=== PATIENT | female | born 1950 | race Caucasian/White ===

== ENCOUNTER → 2016-12-15 | Outpatient (CLI) | payer OTHER ==
--- NOTE | 2016-12-15 16:13 | DIAGNOSTIC IMAGING REPORT ---
CHEST 2 VIEWS ROUTINE CLINICAL HISTORY: R05 Productive [id number] Low grade [id number] COMPARISON STUDY: No previous studies for comparison. FINDINGS: The bones soft tissues and hemidiaphragms are normal. The cardiomediastinal silhouette is normal. The lungs are clear. The pulmonary vasculature is normal. IMPRESSION: Negative chest. Electronically signed by: Niko Grullon M.D. 12/15/2016 4:12 PM Dictated Date/Time: 12/15/2016 4:10 PM
== END | disposition home or self-care (01) ==
LOC: C.RAD1850 15:56
PROVIDERS: ATTEND Internal Medicine
DX: R50.9 Fever, unspecified (principal); R05 Cough

== ENCOUNTER → 2017-04-21 | Outpatient (CLI) | payer OTHER ==
--- NOTE | 2017-04-22 14:18 | MAMMOGRAPHY REPORT ---
BILATERAL DIGITAL SCREENING MAMMOGRAM TOMOSYNTHESIS WITH CAD: 04/21/2017 CLINICAL HISTORY: Routine screening. Patient has no complaints. TECHNIQUE: Breast tomosynthesis in addition to standard 2D mammography was performed. Current study was also evaluated with a Computer Aided Detection (CAD) system. COMPARISON: Comparison is made to exams dated: 04/17/2016 mammogram, 04/12/2015 mammogram, 04/11/2014 mamm ogram, 04/07/2013 mammogram, 04/06/2012 mammogram, and 03/24/2011 mammogram - [facility] er. BREAST COMPOSITION: The tissue of both breasts is extremely dense, which lowers the sensitivity of m ammography. FINDINGS: A linear scar marker overlies the far superior and posterior right upper outer quadrant in the axillary tail region. There is a focal area of architectural distortion in the upper outer poste rior approximate 10:00 right breast, which is located 6 cm inferior to the scar marker based on the M LO view. It is unclear if this distortion could be secondary to prior surgery or represents a new ar ea of distortion and further evaluation with spot compression tomosynthesis views and possibly target ed ultrasound are recommended. There are diffuse bilateral benign-appearing calcifications. No other suspicious mass, area of archi tectural distortion or cluster of suspicious microcalcifications is seen. IMPRESSION: ACR BI-RADS CATEGORY 0: INCOMPLETE EVALUATION: NEED ADDITIONAL IMAGING EVALUATION The focal area of architectural distortion in the approximate 10:00 right breast needs additional wanda luation. The patient will be called to schedule an appointment. Approximately 10% of breast cancers are not detected with mammography. A negative mammographic report should not delay biopsy if a clinically suggestive mass is present. Colleen Voss M.D. ay/:04/21/2017 17:04:48 Nurse'S Aides Teacher: Belle HEBERT(Chriss)(Jeromy), [facility] letter sent: Addl Imaging 0 BI-RADS Code: ACR BI-RADS Category 0: Incomplete Evaluation: Need Additional Imaging Evaluation
== END | disposition home or self-care (01) ==
LOC: C.MAMM 10:10
PROVIDERS: ATTEND Surgery
DX: Z12.31 Encounter for screening mammogram for malignant neoplasm of breast (principal); R92.8 Other abnormal and inconclusive findings on diagnostic imaging of breast

== ENCOUNTER → 2017-05-05 | Outpatient (CLI) | payer OTHER ==
--- NOTE | 2017-05-06 15:30 | MAMMOGRAPHY REPORT ---
UNILATERAL RIGHT DIGITAL DIAGNOSTIC MAMMOGRAM TOMOSYNTHESIS AND TARGETED RIGHT ULTRASOUND: 05/05/2017 CLINICAL HISTORY: 66-year-old woman called back from screening mammography for architectural distorti on in the approximate 10:00 posterior right breast. Patient is a history of prior benign surgical ex cisional biopsy, with a skin surgical scar marker overlying the right axillary tail. Family history of breast cancer = sister at age 35, mother and maternal aunt. TECHNIQUE: Spot compression right CC and MLO tomosynthesis images were obtained. COMPARISON: Comparison is made to exams dated: 04/21/2017 mammogram, 04/17/2016 mammogram, 04/12/2015 demetri mogram, 04/11/2014 mammogram, 04/07/2013 mammogram, and 04/06/2012 mammogram - [facility]. BREAST COMPOSITION: The tissue of the right breast is extremely dense, which lowers the sensitivity of mammography. FINDINGS: A linear scar marker overlies the upper outer superior and posterior/right axillary tail re gion. There is focal architectural distortion in the approximate 10:00 to 11:00 right breast that pe rsists with the additional supplemental spot compression tomosynthesis images. The scar marker align s with the distortion on the spot compression CC view but the distortion seen on the MLO view is loca oralia 6 cm inferior to the scar marker. No suspicious calcifications, obvious new mass or asymmetry is seen. Further evaluation with ultrasound was performed. Targeted ultrasound was performed in the upper outer quadrant of the right breast, including scanning over the visible skin surgical scar. There is dense fibroglandular tissue with areas of shadowing p articularly in the 9:00, 9:30 and 10:00 axes. No definite suspicious solid mass is identified. IMPRESSION: ACR-BI-RADS CATEGORY 3: PROBABLY BENIGN, TARGETED ULTRASOUND ACR-BI-RADS CATEGORY 3: PRO BABLY BENIGN 1. The focal area of architectural distortion in the upper outer posterior right breast is likely po stsurgical in nature, although there is a discrepancy with location of the skin surgical scar with re osei to the level of the distortion based on the MLO view. Therefore, a short interval follow-up rig ht diagnostic tomosynthesis mammogram and possible repeat ultrasound is recommended to ensure stabili ty in 6 months. 2. Given the strong family history of premenopausal breast cancer, and extremely dense breasts would also consider additional screening with breast MRI. Approximately 10% of breast cancers are not detected with mammography. A negative mammographic report should not delay biopsy if a clinically suggestive mass is present. Colleen Voss M.D. ay/:05/06/2017 14:37:37 Engineering Production Worker: Miriam HEBERT(Chriss)([place]), [facility] letter sent: Follow Up Recommended 3 BI-RADS Code: ACR-BI-RADS Category 3: Probably Benign Ultrasound BI-RADS: ACR-BI-RADS Category 3: Pr obably Benign
== END | disposition home or self-care (01) ==
LOC: C.MAMM 13:04
PROVIDERS: ATTEND Surgery
DX: N64.89 Other specified disorders of breast (principal); Z80.3 Family history of malignant neoplasm of breast